=== PATIENT | female | born 1975 | race Caucasian/White ===

== ENCOUNTER 2018-12-29 02:01 | Emergency (ER) | payer BC ==
[2018-12-29] MEDS ORDERED: ACETAMINOPHEN 325 MG TABLET ONE (02:39)
[2018-12-29] MEDS ORDERED: IBUPROFEN 400 MG TAB ONE (02:39)
--- NOTE | 2018-12-29 03:38 | EDPHYS ---
Physician Documentation [facility] Name: Anya Israel Age: 43 yrs Sex: Female : 1975 Arrival Date: 12/29/2018 Time: 02:02 Bed 6 Private MD: LETTY Physician Wes Savage HPI: 12/29 02:20 This 43 yrs old Female presents to ER via Ambulatory with complaints of Wrist cp Injury. 02:20 The patient or guardian reports injury, pain, swelling, tenderness. The complaints cp affect the left wrist diffusely. Context: resulted from a fall, while dancing, on an outstretched hand. Onset: The symptoms/episode began/occurred today. Associated signs and symptoms: Pertinent negatives: cyanosis distally, numbness distally. 02:20 Modifying factors: the symptoms are aggravated by movement. 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 - Social history:: Smoking status: Patient/guardian denies using tobacco, Patient uses alcohol, occasionally. Patient/guardian denies using street drugs. - Ebola Screening: : Patient negative for fever greater than or equal to 101.5 degrees Fahrenheit, and additional compatible Ebola Virus Disease symptoms Patient denies exposure to infectious person Patient denies travel to an Ebola-affected area in the 21 days before illness onset. ROS: 02:25 Constitutional: Negative for chills, fever. cp 02:25 Respiratory: Negative for cough, shortness of breath, wheezing. 02:25 Abdomen/GI: Negative for abdominal pain, nausea, vomiting, and diarrhea. 02:25 MS/extremity: Positive for injury or acute deformity, pain, swelling, tenderness, of the left wrist. 02:25 Skin: Negative for cellulitis, rash. 02:25 Neuro: Negative for altered mental status, headache, syncope. 02:25 All other systems are negative. Exam: 02:33 Constitutional: The patient appears in no acute distress, alert, awake, well developed, cp well nourished. 02:33 Hand exam: Exam is positive for snuff box/scaphoid tenderness, swelling, ROM: limited cp passive range of motion due to pain, in the left wrist, Perfusion: the extremity is normally perfused throughout, sensation intact. 02:33 Skin: cellulitis, is not appreciated, no rash present. 02:33 Head/Face: Normocephalic, atraumatic. 02:33 Neck: ROM/movement: is normal, is supple, without pain, no range of motions limitations. 02:33 Chest/axilla: Inspection: normal. 02:33 Cardiovascular: Rate: normal. 02:33 Respiratory: the patient does not display signs of respiratory distress, Respirations: normal. Vital Signs: 02:18 BP 104 / 69; Pulse 63; Resp 16; Temp 98.1; Pulse Ox 100% on R/A; Weight 72.57 kg; ao Height 5 ft. 4 in. (162.56 cm); Pain 6/10; 03:25 BP 105 / 69; Pulse 62; Resp 18; Pulse Ox 99% ; ao 02:18 Body Mass Index 27.46 (72.57 kg, 162.56 cm) ao Procedures: 04:15 Splinting: Splint applied to left wrist using earl wrap, Orthoglass splint, thumb spica cp type. applied by tech. Examined by me, post splint application: neurovascular intact, Patient tolerated well. MDM: 02:12 Patient medically screened. cp 03:25 Test interpretation: by ED physician or midlevel provider: plain radiologic studies. cp Counseling: I had a detailed discussion with the patient and/or guardian regarding: the historical points, exam findings, and any diagnostic results supporting the discharge/admit diagnosis, radiology results, to return to the emergency department if symptoms worsen or persist or if there are any questions or concerns that arise at home. 03:34 Data reviewed: vital signs, nurses notes, radiologic studies, plain films, and as a cp result, I will discharge patient. ED course: Xrays of left wrist negative obvious fracture but will immobilize wrist with orthoglass thumb spica splint due to concern for scaphoid fracture. 12/29 03:01 Order name: Wrist Left 3 View; Complete Time: 00:18 EDMS Administered Medications: 02:23 Drug: Ibuprofen 800 mg Route: PO; ao 04:12 Follow up: Response: No adverse reaction ao 02:23 Drug: Tylenol 650 mg Route: PO; ao 04:12 Follow up: Response: No adverse reaction ao Disposition: 04:00 Chart complete. cp Disposition: 12/29/18 03:37 Discharged to Home. Impression: Pain in left wrist - from fall. - Condition is Stable. - Discharge Instructions: Wrist Pain. - Prescriptions for Naprosyn 500 mg Oral Tablet - take 1 tablet by ORAL route 2 times per day take with food; 20 tablet. Tramadol 50 mg Oral Tablet - take 1 tablet by ORAL route every 8 hours as needed; 12 tablet. - Medication Reconciliation Form, Thank You Letter, Antibiotic Education, Prescription Opioid Use, Work release form form. - Follow up: Srini Manley MD; When: 2 - 3 days; Reason: left wrist injury. - Problem is new. - Symptoms have improved. Addendum: 01/01/2019 11:10 Co-signature as Attending Physician, Wes Savage MD I agree with the assessment and c lawernce plan of care. Signatures: Dispatcher [employer] EDSD Wes Savage MD MD cha Page, Corey, PA PA cp Domingo Akhtar RN RN ao Corrections: (The following items were deleted from the chart) 12/29 03:36 03:25 Data reviewed: vital signs, nurses notes, radiologic studies, plain films, Xrays cp of left wrist negative for fracture, and as a result, I will discharge patient, cp 04:18 03:37 12/29/2018 03:37 Discharged to Home. Impression: Pain in left wrist - from fall. ao Condition is Stable. Forms are Medication Reconciliation Form, Thank You Letter, Antibiotic Education, Prescription Opioid Use. Follow up: Srini Manley; When: 2 - 3 days; Reason: left wrist injury. Problem is new. Symptoms have improved. cp
--- NOTE | 2018-12-29 03:38 | ER ---
Nurse's Notes [facility] Name: Anya Israel Age: 43 yrs Sex: Female : 1975 Arrival Date: 12/29/2018 Time: 02:02 Bed 6 Private MD: Diagnosis: Pain in left wrist-from fall Presentation: 12/29 02:12 Presenting complaint: Patient states: Patient was dancing and felt into her left wrist. ao Some alcohol was involve as reported by patient. Transition of care: patient was not received from another setting of care. Onset of symptoms is unknown. Risk Assessment: Do you want to hurt yourself or someone else? Patient reports no desire to harm self or others. Initial Sepsis Screen: Does the patient meet any 2 criteria? No. Patient's initial sepsis screen is negative. Does the patient have a suspected source of infection? No. Patient's initial sepsis screen is negative. Care prior to arrival: None. 02:12 Method Of Arrival: Ambulatory ao 02:12 Acuity: CARLOS 4 ao Triage Assessment: 02:20 General: Appears in no apparent distress. Behavior is cooperative, inappropriate for ao age. Pain: Complains of pain in left hand. EENT: No signs and/or symptoms were reported regarding the EENT system. Neuro: No deficits noted. Cardiovascular: Capillary refill < 3 seconds Patient's skin is warm and dry. Respiratory: Airway is patent Respiratory effort is even, unlabored, Respiratory pattern is regular, symmetrical. GI: Abdomen is non-distended. : No signs and/or symptoms were reported regarding the genitourinary system. Derm: No signs and/or symptoms reported regarding the dermatologic system. Musculoskeletal: Swelling present in left wrist Reports pain in left hand. Injury Description: Fall from standing position. Denies LOL. 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 - Social history:: Smoking status: Patient/guardian denies using tobacco, Patient uses alcohol, occasionally. Patient/guardian denies using street drugs. - Ebola Screening: : Patient negative for fever greater than or equal to 101.5 degrees Fahrenheit, and additional compatible Ebola Virus Disease symptoms Patient denies exposure to infectious person Patient denies travel to an Ebola-affected area in the 21 days before illness onset. Screenin:19 Abuse screen: Denies threats or abuse. Denies injuries from another. Nutritional ao screening: No deficits noted. Tuberculosis screening: No symptoms or risk factors identified. Fall Risk None identified. Assessment: 02:20 General: See triage assessment. ao 03:24 Reassessment: Patient appears in no apparent distress at this time. Patient and/or ao family updated on plan of care and expected duration. Pain level reassessed. Patient is alert, oriented x 3, equal unlabored respirations, skin warm/dry/pink. Waiting on Dispo orders. 04:14 Reassessment: DC instructions given to patient and significant other. Patient agree ao with the POC and to follow up with Sumi. Vital Signs: 02:18 BP 104 / 69; Pulse 63; Resp 16; Temp 98.1; Pulse Ox 100% on R/A; Weight 72.57 kg; ao Height 5 ft. 4 in. (162.56 cm); Pain 6/10; 03:25 BP 105 / 69; Pulse 62; Resp 18; Pulse Ox 99% ; ao 02:18 Body Mass Index 27.46 (72.57 kg, 162.56 cm) ao ED Course: 02:02 Patient arrived in ED. am2 02:09 Wes Mayorga PA is PHCP. cp 02:09 Wes Savage MD is Attending Physician. cp 02:12 Domingo Akhtar, RN is Primary Nurse. ao 02:14 Triage completed. ao 02:19 Arm band placed on right wrist. Patient placed in an exam room, on a stretcher, on ao pulse oximetry, Patient notified of wait time. 02:22 Patient has correct armband on for positive identification. Pulse ox on. NIBP on. ao 03:36 Srini Manley MD is Referral Physician. cp 04:03 Wrist Left 3 View In Process Unspecified. EDMS 04:16 No provider procedures requiring assistance completed. Patient did not have IV access ao during this emergency room visit. 05:00 Orthoglass splint: Thumb spica splint applied on left forearm. oe Administered Medications: 02:23 Drug: Ibuprofen 800 mg Route: PO; ao 04:12 Follow up: Response: No adverse reaction ao 02:23 Drug: Tylenol 650 mg Route: PO; ao 04:12 Follow up: Response: No adverse reaction ao Outcome: 03:37 Discharge ordered by MD. cp 04:17 Discharged to home ambulatory. ao 04:17 Condition: stable 04:17 Discharge instructions given to patient, Instructed on discharge instructions, follow up and referral plans. Demonstrated understanding of instructions, follow-up care, medications, Prescriptions given X 2. 04:18 Patient left the ED. ao Signatures: Dispatcher [employer] EDMS Wes Mayorga PA PA cp Ortiz, Alex RN RN ao Alejandro Wagner Amanda am2 Corrections: (The following items were deleted from the chart) 02:14 02:12 Acuity: CARLOS 3 ao ao 03:24 02:20 Reassessment: Patient appears in no apparent distress at this time. Patient ao and/or family updated on plan of care and expected duration. Pain level reassessed. Patient is alert, oriented x 3, equal unlabored respirations, skin warm/dry/pink. Waiting on Dispo orders ao
--- NOTE | 2018-12-29 09:59 | RAD REPORT ---
EXAM DESCRIPTION: RAD - Wrist Left 3 View - 12/29/2018 4:03 am CLINICAL HISTORY: Left wrist pain status post injury FINDINGS: No fracture or dislocation is seen. If the patient continues to have symptoms to suggest an occult fracture then a followup plain film se marcos in 7 days would be recommended
== END 2018-12-29 04:18 | disposition home or self-care (01) ==
LOC: ER 02:01
PROC: 2W3DX1Z Immobilization of Left Lower Arm using Splint (ICD-10-PCS; principal; 2018-12-29)
DX: S69.92XA Unspecified injury of left wrist, hand and finger(s), initial encounter (principal); W18.30XA Fall on same level, unspecified, initial encounter; Y93.41 Activity, dancing; I95.9 Hypotension, unspecified
CPT/HCPCS: 99284

== ENCOUNTER 2020-10-26 11:01 | Emergency (ER) | payer OTHER ==
--- OUTSIDE RECORDS SUMMARY | 2020-10-26 11:04 | XMS REPORT | Continuity of Care Document ---
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 Chhibber Encounter for Active Diagnosis 08/08/2018 Supar na general adult Chhibb er medical examination without abnormal findings Medications No Data Provided for This Section Allergies, Adverse Reactions, Alerts No Known Medication Allergies Immunizations No Data Provided for This Section Results No Data Provided for This Section Pathology Reports No Data Provided for This Section Diagnostic Reports No Data Provided for This Section Consultation Notes No Data Provided for This Section Discharge Summaries No Data Provided for This Section History and Physicals No Data Provided for This Section Vital Signs No Data Provided for This Section Encounters No Data Provided for This Section Procedures No Data Provided for This Section Assessment and Plan No Data Provided for This Section Plan of Care No Data Provided for This Section Social History No Data Provided for This Section Family History No Data Provided for This Section Advance Directives No Data Provided for This Section Functional Status No Data Provided for This Section
--- NOTE | 2020-10-26 12:21 | RAD REPORT ---
EXAM DESCRIPTION: RAD - Chest Pa And Lat (2 Views) - 10/26/2020 12:11 pm CLINICAL HISTORY: Cough;SOB;Fever Chest pain. COMPARISON: No comparisons FINDINGS: Mild bilateral interstitial and alveolar lung opacities are present likely viral infection . The heart is normal in size. No displaced fractures.
[2020-10-26] MEDS ORDERED: HYDROCODONE/CHLORPHEN 5 ML/OSYR ONE (14:09)
--- NOTE | 2020-10-26 14:15 | EDPHYS ---
Physician Documentation [facility] Name: Anya Israel Age: 44 yrs Sex: Female : 1975 Arrival Date: 10/26/2020 Time: 11:04 Bed 6 Private MD: Akash Harris ED Physician Farzad Ortega HPI: 10/26 13:45 This 44 yrs old Female presents to ER via Ambulatory with complaints of pm1 COVID+, Fever. 13:45 The patient or guardian reports cough, and fever for almost two weeks. She was pm1 diagnosed with COVID on 10/14 with onset of symptoms the day before. Modifying factors: The symptoms are alleviated by nothing. She has been taking vitamin D, vitamin C, and zinc as recommended by her PCP Thien., the symptoms are aggravated by talking, coughing. Associated signs and symptoms: Pertinent positives: fever, change in smell and taste. Some shortness of breath with talking, Pertinent negatives: chest pain, diarrhea, nausea, vomiting. Severity of symptoms: in the emergency department the symptoms are unchanged. Historical: - Allergies: 11:53 local anesthetics; iw 11:53 Triple Antibiotic; iw - PMHx: 11:53 hypotension; iw - PSHx: 11:53 Hysterectomy; Disc surgery; iw - Immunization history:: Adult Immunizations not up to date. - Social history:: Smoking status: Patient denies any tobacco usage or history of. ROS: 13:45 ENT: Negative for injury, pain, and discharge, Cardiovascular: Negative for chest pain, pm1 palpitations, and edema. 13:45 Abdomen/GI: Negative for abdominal pain, nausea, vomiting, diarrhea, and constipation, Back: Negative for injury and pain, MS/Extremity: Negative for injury and deformity, Skin: Negative for injury, rash, and discoloration. 13:45 Neuro: Negative for headache, weakness, numbness, tingling, and seizure. 13:45 Constitutional: Positive for fever, Negative for poor PO intake. 13:45 Respiratory: Positive for cough, shortness of breath with talking. Exam: 13:45 Constitutional: This is a well developed, well nourished patient who is awake, alert, pm1 and in no acute distress. Head/Face: Normocephalic, atraumatic. 13:45 Skin: Warm, dry with normal turgor. Normal color with no rashes, no lesions, and no evidence of cellulitis. MS/ Extremity: Pulses equal, no cyanosis. Neurovascular intact. Full, normal range of motion. 13:45 Cardiovascular: Exam negative for acute changes, Rate: normal, Rhythm: regular, Pulses: no pulse deficits are appreciated, Edema: is not appreciated. 13:45 Respiratory: Exam negative for acute changes, respiratory distress, Breath sounds: are clear throughout, no bronchial sounds, no decreased breath sounds, no rales, rhonchi, no stridor, no wheezing. 13:45 Neuro: Exam negative for acute changes, Orientation: is normal, Mentation: is normal, Motor: is normal, moves all fours. Vital Signs: 11:50 BP 105 / 76; Pulse 91; Resp 16; Temp 98.8; Pulse Ox 100% on R/A; Weight 69.85 kg; iw Height 5 ft. 3 in. (160.02 cm); 14:37 BP 106 / 69; Pulse 88; Resp 17; Pulse Ox 99% on R/A; tw2 11:50 Body Mass Index 27.28 (69.85 kg, 160.02 cm) iw MDM: 13:37 Patient medically screened. pm1 14:07 Data reviewed: vital signs. Data interpreted: Pulse oximetry: on room air is 100 %. pm1 Interpretation: normal. Counseling: I had a detailed discussion with the patient and/or guardian regarding: the historical points, exam findings, and any diagnostic results supporting the discharge/admit diagnosis, radiology results, the need for outpatient follow up, to return to the emergency department if symptoms worsen or persist or if there are any questions or concerns that arise at home. 14:07 ED course: Discussed with the patient treatment options that die maker trim have been pm1 doing for patient's in the outpatient setting regarding ivermectin. Patient is agreeable to ivermectin and I will discharge her with albuterol inhaler and steroid therapy. 10/26 11:53 Order name: Chest Pa And Lat (2 Views) XRAY; Complete Time: 13:06 iw Administered Medications: 14:08 Drug: Tussionex Pennkinetic ER 5 ml Route: PO; tw2 14:38 Follow up: Response: No adverse reaction tw2 Disposition: 17:13 Co-signature as Attending Physician, Farzad Ortega MD. rn Disposition: 10/26/20 14:13 Discharged to Home. Impression: Coronavirus infection, unspecified. - Condition is Stable. - Discharge Instructions: Antibiotic Resistance, COVID-19. - Prescriptions for ivermectin 3 mg Oral tablet - take 6 tablet by ORAL route as directed x1 dose on day 1 and day 3; 12 tablet. Prednisone 20 mg Oral Tablet - take 3 tablet by ORAL route once daily for 5 days; 15 tablet. Albuterol Sulfate 90 mcg/actuation - inhale 1-2 puff by INHALATION route every 4-6 hours; 1 Inhaler. Guaifenesin AC 10- 100 mg/5 mL Oral Liquid - take 10 milliliter by ORAL route every 4 hours As needed; 240 milliliter. - Medication Reconciliation Form, Thank You Letter, Antibiotic Education, Prescription Opioid Use, Work release form form. - Follow up: Emergency Department; When: As needed; Reason: Worsening of condition. Follow up: Akash Harris MD; When: 2 - 3 days; Reason: Recheck today's complaints, Continuance of care, Re-evaluation by your physician. - Problem is new. - Symptoms have improved. Signatures: Dispatcher [employer] Rachel Hawthorne RN RN iw Nieto, Roman, MD MD rn Marinas, Patrick, ROGELIO ACID PATROLLER pm1 Kelly Snider RN RN tw2 Corrections: (The following items were deleted from the chart) 14:37 14:13 10/26/2020 14:13 Discharged to Home. Impression: Coronavirus infection, tw2 unspecified. Condition is Stable. Forms are Work release form, Medication Reconciliation Form, Thank You Letter, Antibiotic Education, Prescription Opioid Use. Follow up: Emergency Department; When: As needed; Reason: Worsening of condition. Follow up: Akash Harris; When: 2 - 3 days; Reason: Recheck today's complaints, Continuance of care, Re-evaluation by your physician. Problem is new. Symptoms have improved. pm1
--- NOTE | 2020-10-26 14:15 | ER ---
Nurse's Notes [facility] Name: Anya Israel Age: 44 yrs Sex: Female : 1975 Arrival Date: 10/26/2020 Time: 11:04 Bed 6 Private MD: Akash Harris Diagnosis: Coronavirus infection, unspecified Presentation: 10/26 11:50 Chief complaint: Patient states: positive COVID X 2 weeks ago, still having fever , iw having SOB and started coughing when she talks , wanted a CXR. Coronavirus screen: Client reports previous positive COVID test result. Ebola Screen: Patient negative for fever greater than or equal to 101.5 degrees Fahrenheit, and additional compatible Ebola Virus Disease symptoms Patient denies exposure to infectious person. Patient denies travel to an Ebola-affected area in the 21 days before illness onset. No symptoms or risks identified at this time. Initial Sepsis Screen: Does the patient meet any 2 criteria? No. Patient's initial sepsis screen is negative. Does the patient have a suspected source of infection? No. Patient's initial sepsis screen is negative. Risk Assessment: Do you want to hurt yourself or someone else? Patient reports no desire to harm self or others. Onset of symptoms was October 09, 2020. 11:50 Method Of Arrival: Ambulatory iw 11:50 Acuity: CARLOS 3 iw Historical: - Allergies: 11:53 local anesthetics; iw 11:53 Triple Antibiotic; iw - PMHx: 11:53 hypotension; iw - PSHx: 11:53 Hysterectomy; Disc surgery; iw - Immunization history:: Adult Immunizations not up to date. - Social history:: Smoking status: Patient denies any tobacco usage or history of. Screenin:34 Abuse screen: Denies threats or abuse. Nutritional screening: No deficits noted. tw2 Tuberculosis screening: No symptoms or risk factors identified. Fall Risk None identified. Assessment: 13:43 Reassessment: Patient appears in no apparent distress at this time. No changes from tw2 previously documented assessment. Patient and/or family updated on plan of care and expected duration. Pain level reassessed. provider at bedside at this time. 13:44 General: Appears in no apparent distress. slender, obese, Behavior is calm, tw2 cooperative, appropriate for age. Pain: Denies pain. Neuro: Level of Consciousness is awake, alert, obeys commands, Oriented to person, place, time, situation. Cardiovascular: Patient's skin is warm and dry. Respiratory: Reports cough that is non-productive, persistent Airway is patent Respiratory effort is even, unlabored, Respiratory pattern is regular, symmetrical. GI: No signs and/or symptoms were reported involving the gastrointestinal system. : No signs and/or symptoms were reported regarding the genitourinary system. EENT: No signs and/or symptoms were reported regarding the EENT system. Musculoskeletal: Range of motion: intact in all extremities. 14:37 Reassessment: Patient appears in no apparent distress at this time. No changes from tw2 previously documented assessment. Patient and/or family updated on plan of care and expected duration. Pain level reassessed. Vital Signs: 11:50 BP 105 / 76; Pulse 91; Resp 16; Temp 98.8; Pulse Ox 100% on R/A; Weight 69.85 kg; iw Height 5 ft. 3 in. (160.02 cm); 14:37 BP 106 / 69; Pulse 88; Resp 17; Pulse Ox 99% on R/A; tw2 11:50 Body Mass Index 27.28 (69.85 kg, 160.02 cm) iw ED Course: 11:04 Patient arrived in ED. mr 11:05 Akash Harris MD is Private Physician. mr 11:52 Triage completed. iw 11:53 Arm band placed on. iw 12:11 Chest Pa And Lat (2 Views) XRAY In Process Unspecified. EDMS 13:34 Kelly Snider, RN is Primary Nurse. tw2 13:34 Bed in low position. Call light in reach. Pulse ox on. NIBP on. tw2 13:37 Kevon Soto NP is PHCP. pm1 13:37 Farzad Ortega MD is Attending Physician. pm1 14:12 Akash Harris MD is Referral Physician. pm1 14:36 No provider procedures requiring assistance completed. Patient did not have IV access tw2 during this emergency room visit. Administered Medications: 14:08 Drug: Tussionex Pennkinetic ER 5 ml Route: PO; tw2 14:38 Follow up: Response: No adverse reaction tw2 Outcome: 14:13 Discharge ordered by . pm1 14:36 Discharged to home ambulatory. tw2 14:36 Condition: stable 14:36 Discharge instructions given to patient, Instructed on discharge instructions, follow up and referral plans. no drinking with medication, no driving heavy equipment, medication usage, Demonstrated understanding of instructions, follow-up care, medications, Prescriptions given X 4. 14:37 Patient left the ED. tw2 Signatures: Dispatcher [employer] EDKierra Koehler Irene, RN RN iw Kevon Soto NP SELF CONTAINED BEHAVIOR UNIT TEACHER pm1 Kelly Snider RN RN tw2
[2020-10-26 14:47] VITALS: TEMP 98.8
[2020-10-26 14:48] VITALS: BP 106/69; O2SAT 99
== END 2020-10-26 14:37 | disposition home or self-care (01) ==
LOC: ER 11:01
DX: U07.1 COVID-19 (principal); I95.9 Hypotension, unspecified; Z88.1 Allergy status to other antibiotic agents; Z88.4 Allergy status to anesthetic agent
CPT/HCPCS: 71046; 99284